=== PATIENT | male | born 1960 | race Caucasian/White ===

== ENCOUNTER 2017-09-19 19:52 | Emergency (ER) | payer MEDICARE | END 2017-09-19 20:59 | disposition home or self-care (01) | LOC: D.ER 19:52 | DX: G89.29 Other chronic pain (principal); F17.200 Nicotine dependence, unspecified, uncomplicated ==

== ENCOUNTER 2017-11-20 11:19 | Emergency (ER) | payer MEDICARE | END 2017-11-20 15:30 | disposition home or self-care (01) | LOC: D.ER 11:19 | DX: M54.16 Radiculopathy, lumbar region (principal) ==

== ENCOUNTER 2018-01-11 21:55 | Emergency (ER) | payer MEDICARE | END 2018-01-12 00:08 | disposition home or self-care (01) | LOC: D.ER 21:55 | DX: M54.12 Radiculopathy, cervical region (principal); M54.5 Low back pain; F17.200 Nicotine dependence, unspecified, uncomplicated ==

== ENCOUNTER 2018-03-02 21:18 | Emergency (ER) | payer MEDICARE | END 2018-03-02 23:40 | disposition home or self-care (01) | LOC: D.ER 21:18 | DX: M54.16 Radiculopathy, lumbar region (principal) ==

== ENCOUNTER 2018-05-07 10:14 | Emergency (ER) | payer MEDICARE ==
[~2018-05-07] VITALS: Ht 170.2 cm; Wt 81.4 kg
[2018-05-07 10:21] VITALS: BP 138/80; Ht 170.2 cm; Wt 81.4 kg
== END 2018-05-07 14:19 | disposition home or self-care (01) ==
LOC: D.ER 10:14
DX: M54.2 Cervicalgia (principal); R20.2 Paresthesia of skin; M54.9 Dorsalgia, unspecified; R53.1 Weakness; F17.200 Nicotine dependence, unspecified, uncomplicated

== ENCOUNTER 2018-06-26 13:51 | Emergency (ER) | payer MEDICARE, OTHER ==
[~2018-06-26] VITALS: Ht 170.2 cm; Wt 80.9 kg
[2018-06-26 14:22] VITALS: Ht 170.2 cm; Wt 80.9 kg
[2018-06-26] MEDS ORDERED: NORCO 7.5/325 T1 TA1 PO (15:42)
[2018-06-26] MEDS ORDERED: CYCLOBENZAPRINE10 MG PO (15:42)
[2018-06-26 16:07] VITALS: BP 166/87
== END 2018-06-26 16:05 | disposition home or self-care (01) ==
LOC: D.ER 13:51
DX: S76.312A Strain of muscle, fascia and tendon of the posterior muscle group at thigh level, left thigh, initial encounter (principal); X50.0XXA Overexertion from strenuous movement or load, initial encounter; Y93.89 Activity, other specified; Y92.019 Unspecified place in single-family (private) house as the place of occurrence of the external cause; M16.11 Unilateral primary osteoarthritis, right hip

== ENCOUNTER 2021-04-21 10:00 | Emergency (ER) | payer OTHER ==
[~2021-04-21] VITALS: Ht 170.2 cm; Wt 80.0 kg
[~2021-04-21 10:00] MED LIST: CYCLOBENZAPRINE10 MG PO; NORCO 7.5/325 T1 TA1 PO
[2021-04-21 10:04] VITALS: BP 131/77; Ht 170.2 cm; Wt 80.0 kg
[2021-04-21] MEDS ORDERED: HYDROCODON-ACE1 EAC7 PO (11:33)
== END 2021-04-21 11:45 | disposition home or self-care (01) ==
LOC: D.ER 10:00
DX: M51.36 Other intervertebral disc degeneration, lumbar region (principal); M54.5 Low back pain